=== PATIENT | female | born 1975 | race Caucasian/White ===

== ENCOUNTER 2017-12-25 20:20 | Emergency (ER) | payer MEDICARE, OTHER ==
[2017-12-25] MEDS: clonazePAM 0.5 MG TABLET PO (20:44)
== END 2017-12-25 20:58 | disposition home or self-care (01) ==
LOC: ER 20:20
DX: F41.9 Anxiety disorder, unspecified (principal); J44.9 Chronic obstructive pulmonary disease, unspecified; F32.9 Major depressive disorder, single episode, unspecified; F17.200 Nicotine dependence, unspecified, uncomplicated; Z79.899 Other long term (current) drug therapy
CPT/HCPCS: 99284